=== PATIENT | female | born 1945 | race Caucasian/White ===

== ENCOUNTER → 2016-12-12 | Day surgery (SDC) | payer OTHER, MEDICAID ==
[~2016-12-12] VITALS: Ht 152.4 cm; Wt 59.4 kg
[~2016-12-12] MED LIST: GABA-531 PO; GLIP10TA10 PO; HYDR-519 PO; LISI10TA5 PO; MULT-1146 PO; SITA50TA3 PO
== END | disposition home or self-care (01) ==
LOC: OR 06:54
PROVIDERS: ATTEND Orthopaedic Surgery
DX: M75.41 Impingement syndrome of right shoulder (principal); E11.9 Type 2 diabetes mellitus without complications; Z53.8 Procedure and treatment not carried out for other reasons